=== PATIENT | female | born 2005 ===

== ENCOUNTER 2025-01-03 14:11 | Outpatient (REF) | payer OTHER, SELFPAY ==
[2025-01-04 03:31] LABS: HIV-1/2 Ag & Ab Screen Negative (Negative)
[2025-01-04 03:55] LABS: Hepatitis C Ab w Rflx HCV PCR Negative (Negative)
[2025-01-06 11:32] LABS: Syphilis Serology (RPR) Negative (Negative)
[2025-01-06 12:01] LABS: Chlamydia Result Negative (Negative); GC Result Negative (Negative)
== END 2025-01-03 14:12 | disposition home or self-care (01) ==
LOC: NCHCN 14:11
PROVIDERS: Visit Provider Family Medicine
DX: Z11.3 Encounter for screening for infections with a predominantly sexual mode of transmission (principal)
CPT/HCPCS: 86803; 87389; 87491; 87591; 86592